=== PATIENT | male | born 1980 | race Caucasian/White ===

== ENCOUNTER 2016-12-05 17:17 | Emergency (ER) | payer SELFPAY ==
--- NOTE | 2016-12-07 13:20 | ER ---
ADMIT: 12/05/2016 RM/LOC: ER [facility] MR#: [id number] [address] [id number] FORREST RAMIREZD Ling [address] [place] [address] Emergency Room Report SEX: M AGE: 36 : 1980 CORRECTED: 12/06/2016617 NJV DATE: 12/05/2016 CHIEF COMPLAINT: Shortness of breath. HISTORY OF PRESENT ILLNESS: This is a 36-year-old male, who presents to the ER complaining of shortness of breath. The patient states this has been going on for 4+ days. States he was sick about a week and a half ago with some upper respiratory symptoms, nasal congestion, was treated with Keflex and got somewhat better. He states, however, the past where he has had increasing nasal congestion, headache, shortness of breath, productive cough, fever, and chills. He does have multiple known sick contacts at home. No chronic diseases. No known allergies. COURSE IN THE EMERGENCY ROOM: The patient was seen and examined. He is afebrile, in no acute distress. He is 99% on room air. Respiratory, no respiratory distress. He does have some faint bilateral wheezes. No rales or rhonchi. He speaks in full sentences. Heart is regular. No JVD, murmurs, gallops, or rubs. Abdomen is soft and nontender. Skin warm and dry. Extremities, nontender. No pedal edema. Did get a chest x-ray on him showing no acute infiltrates. Did give him a DuoNeb treatment in the department tonight which he states greatly improved his breathing. He was also given a gram of Tylenol. IMPRESSION: Sinusitis. DISPOSITION: The patient was started on amoxicillin 1 g p.o. t.i.d. for 5 days. He also was started on prednisone 40 mg p.o. daily for 5 days. He is to use Tylenol or ibuprofen for pain and fever. Increase fluids as tolerated. Follow up with Dr. Black if not improving. Questions sought and answered to the best of my ability and to the patient's satisfaction. Discharged in stable condition. TABITHA Matos / Terell Leyva MD / zeke JOB #: [id number] CC: Terell Leyva MD, Attending Physician Beckie Black MD, Family Physician CORRECTED: 12/06/2016 0618 NJV
== END 2016-12-05 19:45 | disposition home or self-care (01) ==
LOC: ER 17:17
DX: J01.90 Acute sinusitis, unspecified (principal); R06.02 Shortness of breath; F17.210 Nicotine dependence, cigarettes, uncomplicated